=== PATIENT | female | born 1965 | race Hispanic/Latino ===

== ENCOUNTER 2017-06-22 07:52 | Day surgery (SDC) | payer OTHER ==
[2017-06-20 13:24] VITALS: BP 127/54
[2017-06-20 13:32] LABS: BASOPHILS % (AUTO) 0.6 % (0.0-5.0); EOSINOPHILS % (AUTO) 6.3 % (0.0-8.0); HEMATOCRIT 39.2 % (36-48); MEAN CORPUSCULAR HEMOGLOBIN 33.3 pg (27.0-33.0); MEAN CORPUSCULAR HGB CONC 36.5 g/dL (32.0-36.0); MEAN CORPUSCULAR VOLUME 91.3 fL (79-99); MONOCYTES % (AUTO) 6.6 % (3.0-13.0); NEUTROPHILS % (AUTO) 42.5 % (40.0-77.0); PLATELET COUNT (AUTO) 257 K/uL (130-400); RED CELL DISTRIBUTION WIDTH 12.5 % (11.0-15.5); WHITE BLOOD COUNT (AUTO) 9.2 K/uL (4.8-10.8)
[2017-06-20 13:44] LABS: CREATININE 0.6 mg/dL (0.5-1.5); POTASSIUM 4.2 mmol/L (3.5-5.1)
[2017-06-20 13:51] LABS: INR 0.92 (0.85-1.15); PARTIAL THROMBOPLASTIN TIME 25.5 SEC (26.3-35.5); PROTHROMBIN TIME 9.7 SEC (9.6-11.6)
[2017-06-20 14:34] LABS: APPEARANCE,URINE Clear (CLEAR); BILIRUBIN,URINE Negative (NEGATIVE); COLOR,URINE Yellow (YELLOW); GLUCOSE, URINE (UA) Negative (NEGATIVE); KETONES,URINE Negative (NEGATIVE); LEUKOCYTE ESTERASE ,URINE Trace (NEGATIVE); NITRATE,URINE Negative (NEGATIVE); OCCULT BLOOD,URINE Negative (NEGATIVE); PH,URINE 6.5 (5.0-8.0); PROTEIN,URINE Negative (NEGATIVE); UROBILINOGEN,URINE 0.2 mg/dL (0.2-1.0)
[2017-06-20 14:53] LABS: BACTERIA,URINE Few /HPF (None Seen); RBC,URINE None Seen /HPF (0-1); WBC,URINE 0-1 /HPF (0-1)
[~2017-06-22] VITALS: Ht 149.9 cm; Wt 73.1 kg
[2017-06-22] VITALS (10 sets, daily range): BP systolic 98–141; BP diastolic 46–63
[~2017-06-22 07:52] MED LIST: ASPI-1181 PO; BIOT10005 PO; BUSP10TA3 PO; CIME300T PO; DIPH25CA85 PO; FLUT1DIS3 IH; LISI-613 PO; NIAC500T22 PO; OMEP40CA37 PO; PRED20TA3 PO
[2017-06-22] MEDS ORDERED: SODIUM CHLORIDE 0.9% 1000ML 1,000 ML IV SCH ×2 (08:00→13:02)
[2017-06-22] MEDS ORDERED: IOPAMIDOL-370 100 ML VIAL IV ONE (11:54)
[2017-06-22] MEDS ORDERED: ISOVUE-370 50ML VIAL IV ONE ×2 (11:54→12:44)
[2017-06-22] MEDS ORDERED: LIDOCAINE HCL 2% 20ML ONE (11:54)
[2017-06-22] MEDS ORDERED: NITROGLYCERIN 5 MG/ML 10 ML VIAL IV ONE (11:54)
[2017-06-22] MEDS ORDERED: BIVALIRUDIN 250 MG/VIAL IV ONE (11:54)
[2017-06-22] MEDS ORDERED: DiphenhydrAMINE HCL 50 MG/ML VIAL ONE (12:06)
[2017-06-22] MEDS ORDERED: FAMOTIDINE/PF 20 MG/2 ML VIAL IV ONE (12:08)
[2017-06-22] MEDS ORDERED: MIDAZOLAM HCL 1 MG/ML 2ML VIAL ONE (12:26)
[2017-06-22] MEDS ORDERED: ACETAMINOPHEN EXTRA STRENGTH 500 MG TABLET ONE (16:48)
[2017-06-22] MEDS ORDERED: ACETAMINOPHEN EXTRA STRENGTH 500 MG TABLET PO ONE (17:00)
== END 2017-06-22 17:12 | disposition home or self-care (01) ==
LOC: DAH 07:52
PROVIDERS: ATTEND Internal Medicine Cardiovascular Disease
DX: R07.9 Chest pain, unspecified (principal); J45.909 Unspecified asthma, uncomplicated; I10 Essential (primary) hypertension; E78.2 Mixed hyperlipidemia; R93.1 Abnormal findings on diagnostic imaging of heart and coronary circulation; Z68.32 Body mass index [BMI] 32.0-32.9, adult; Z88.8 Allergy status to other drugs, medicaments and biological substances; Z82.49 Family history of ischemic heart disease and other diseases of the circulatory system; Z79.899 Other long term (current) drug therapy
CPT/HCPCS: 36415; 71045; 80048; 81001; 85025; 85610; 85730; 93005; 93458; A4606; C1760; C1894; J1200; J1644; J2250; J3490 ×3; J7030; Q9967 ×3; 99152; 99153; J0583

== ENCOUNTER 2022-12-27 06:10 | Day surgery (SDC) | payer OTHER ==
[2022-12-26 09:37] LABS: BASOPHILS # (AUTO) 0.02 K/uL (0.00-0.20); BASOPHILS % (AUTO) 0.3 % (0.0-5.0); EOSINOPHILS # (AUTO) 0.34 K/uL (0.00-0.70); EOSINOPHILS % (AUTO) 4.6 % (0.0-8.0); HEMATOCRIT 39.6 % (36-48); IMMATURE GRANULOCYTE ABSOLUTE 0.03 K/uL (0-1); LYMPHOCYTES % (AUTO) 40.5 % (21.0-51.0); MEAN CORPUSCULAR HGB CONC 35.1 g/dL (32.0-36.0); MEAN CORPUSCULAR VOLUME 94.1 fL (79-99); MONOCYTES # (AUTO) 0.4 K/uL (0.1-1.0); MONOCYTES % (AUTO) 5.9 % (3.0-13.0); NEUTROPHILS # (AUTO) 3.6 K/uL (1.8-7.7); NEUTROPHILS % (AUTO) 48.3 % (40.0-77.0); PLATELET COUNT (AUTO) 196 K/uL (130-400); RED BLOOD CELL COUNT(AUTO) 4.21 MIL/uL (4.00-5.50); RED CELL DISTRIBUTION WIDTH 12.1 % (11.0-15.5); WHITE BLOOD COUNT (AUTO) 7.5 K/uL (4.8-10.8)
[2022-12-26 09:43] LABS: INR < 0.93 (0.85-1.15); PROTHROMBIN TIME 10.5 SEC (9.6-11.6)
[2022-12-26 09:45] LABS: PARTIAL THROMBOPLASTIN TIME 26.9 SEC (26.3-35.5)
[2022-12-26 10:04] VITALS: BP 153/58; PULSE 65; RESP 18
[~2022-12-27] VITALS: Ht 149.9 cm; Wt 71.0 kg
[2022-12-27] VITALS (12 sets, daily range): BP systolic 113–144; BP diastolic 61–69; PULSE 60–77; RESP 12–21
[~2022-12-27 06:10] MED LIST changes: -ASPI-1181 PO; -BIOT10005 PO; -BUSP10TA3 PO; -CIME300T PO; +DICLOFENAC PO; -DIPH25CA85 PO; +DOCU50CA13 PO; -FLUT1DIS3 IH; -LISI-613 PO; -NIAC500T22 PO; +OLME20TA22 PO; -OMEP40CA37 PO; -PRED20TA3 PO
[2022-12-27] MEDS ORDERED: LACTATED RINGERS 1000ML 1,000 ML IV ONE (06:26)
[2022-12-27] MEDS ORDERED: CEFAZOLIN SODIUM 2 GM VIAL ONE (06:26)
[2022-12-27] MEDS ORDERED: FAMOTIDINE 20MG VIAL IV ONE (07:10)
[2022-12-27] MEDS ORDERED: LIDOCAINE HCL-MPF 0.5% 50ML VIAL IJ ONE (07:15)
[2022-12-27] MEDS ORDERED: FENTANYL CITRATE PF 50 MCG/1 ML 2ML VIAL ONE (07:25)
[2022-12-27] MEDS ORDERED: MIDAZOLAM HCL 1 MG/ML 2ML VIAL ONE (07:25)
[2022-12-27] MEDS ORDERED: FAT EMULSIONS 20% 250ML 250 ML IV ONE (07:36)
[2022-12-27] MEDS ORDERED: CEFAZOLIN SODIUM 2 GM VIAL IVPB ONE (07:38)
[2022-12-27] MEDS ORDERED: PROPOFOL 10 MG/ML 20ML VIAL IV ONE (07:57)
== END 2022-12-27 10:15 | disposition home or self-care (01) ==
LOC: DAH 06:10
PROVIDERS: ATTEND Neurological Surgery
DX: G56.01 Carpal tunnel syndrome, right upper limb (principal); I10 Essential (primary) hypertension; J45.909 Unspecified asthma, uncomplicated; K21.9 Gastro-esophageal reflux disease without esophagitis; Z79.01 Long term (current) use of anticoagulants; Z98.890 Other specified postprocedural states; Z88.3 Allergy status to other anti-infective agents
CPT/HCPCS: 84703; 85025; 85610; 85730; 36415; 64721; A6260; A4663; J7120; J3490 ×2; J3010; J2250; J2704; J0690 ×2; A4215; A4222; A4216; A4223 ×2; A4221